=== PATIENT | male | born 1975 | race Caucasian/White ===

== ENCOUNTER 2016-09-10 08:00 | Emergency (ER) | payer BC ==
[2016-09-10 08:14] VITALS: BP 134/78
--- NOTE | 2016-09-10 08:26 | UC ---
Respiratory Complaint HPI - HPI Summary HPI Summary: HAS HAD SEVERAL DAYS OF ST AND HACKING COUGH. NO FEVER, EAR PAIN, N/V/D. DOES NOT HAVE TONSILS. - History of Current Complaint Chief Complaint: UCRespiratory Stated Complaint: COUGH SORE THROAT Time Seen by Provider: 09/10/16 08:16 Hx Obtained From: Patient Onset/Duration: Gradual Onset, Lasting Days, Still Present Timing: Constant Severity Initially: Moderate Severity Currently: Moderate Pain Intensity: 3 Pain Scale Used: 0-10 Numeric Character: Cough: Nonproductive Aggravating Factors: Nothing Alleviating Factors: Nothing Associated Signs And Symptoms: Positive: Hoarseness. Negative: Dyspnea, Fever, Chills, Pleuritic Chest Pain, Wheezing, Hemoptysis, Dizziness, Calf Pain, Calf Swelling, Edema, URI, Nasal Congestion, Sinus Discomfort - Allergies/Home Medications Allergies/Adverse Reactions: Allergies Allergy/AdvReac Type Severity Reaction Status Date / Time No Known Allergies Allergy Verified 09/10/16 08:14 PMH/Surg Hx/FS Hx/Imm Hx Respiratory History Of: Reports: Asthma - Surgical History Surgical History: Yes Surgery Procedure, Year, and Place: allografts of right and left biceps. tonsillectomy. tendon repair left index finger - Family History Known Family History: Positive: Hypertension - Social History Alcohol Use: Rare Substance Use Type: None Smoking Status (MU): Never Smoked Tobacco Review of Systems Constitutional: Negative ENT: Sore Throat Respiratory: Cough Cardiovascular: Negative Gastrointestinal: Negative All Other Systems Reviewed And Are Negative: Yes Physical Exam Triage Information Reviewed: Yes Appearance: Well-Appearing, No Pain Distress, Well-Nourished Vital Signs: Initial Vital Signs Temp 98.8 F 09/10/16 08:11 Pulse 86 09/10/16 08:11 Resp 20 09/10/16 08:11 BP 134/78 09/10/16 08:11 Pulse Ox 94 09/10/16 08:11 Vital Signs Reviewed: Yes Eyes: Positive: Conjunctiva Clear ENT: Positive: Hearing grossly normal, Pharyngeal erythema, TMs normal, Other: - MUCOUS AND SOME WHITE EXUDATE IN OP Neck: Positive: Supple, No Lymphadenopathy Respiratory Exam: Normal Cardiovascular Exam: Normal Abdomen Description: Positive: Soft Musculoskeletal: Positive: No Edema Neurological: Positive: Alert Psychological: Positive: Age Appropriate Behavior Skin: Negative: rashes UC Diagnostic Evaluation - Laboratory O2 Sat by Pulse Oximetry: 94 Respiratory Course/Dx - Differential Dx/Diagnosis Provider Diagnoses: ACUTE PHARYNGITIS Discharge - Discharge Plan Condition: Stable Disposition: HOME Prescriptions: Azithromycin [Azithromycin 500 MG TAB] 500 mg PO DAILY #5 tab Patient Education Materials: Pharyngitis (ED) Forms: *Work Release Referrals: Tai Torrez, AUTOMOTIVE POWER ELECTRONICS ENGINEER [Primary Care Provider] - If Needed
== END 2016-09-10 08:48 | disposition home or self-care (01) ==
LOC: UCEAST 08:00
DX: J02.9 Acute pharyngitis, unspecified (principal)
CPT/HCPCS: 99212; G0463

== ENCOUNTER 2018-10-14 09:04 | Day surgery (SDC) | payer OTHER ==
[~2018-10-14 09:04] MED LIST: Buffered Lidocaine 1% SYRIN* 1 ML/SYRINGE INTRADERM ONE; Lactated Ringers 1000 ML Bag* 1,000 ML IV SCH; Lidocaine 2% PF * 5 ML VIAL ONE; Midazolam* 1 MG/ML 2 ML VIAL (2 MG) ONE; Propofol* 10 MG/ML 20 ML BTL ONE; Rocuronium* 10 MG/ML VIAL ONE; fentaNYL* 50 MCG/ML 2 ML VIAL (100 MCG VIAL) ONE
[2018-10-14] MEDS ORDERED: ceFAZolin 2 GM PREMIX in ORs 2 GM/50 ML BAG IVPB ONE (09:20)
[2018-10-14] MEDS ORDERED: Dexamethasone IV* 4 MG/ML 1 ML (4 MG) ONE ×2 (11:16→13:22)
[2018-10-14] MEDS ORDERED: ROPIVACAINE 5 MG/ML 30 ML BTL (0.5%) ONE (11:17)
[2018-10-14] MEDS ORDERED: EPINEPHRINE 1 MG/ML 1 ML VIAL ONE (12:08)
[2018-10-14] MEDS ORDERED: ceFAZolin 1 GM VIAL(*) ONE (12:43)
[2018-10-14] MEDS ORDERED: Acetaminophen TAB* 325 MG PO PRN (12:47)
[2018-10-14] MEDS ORDERED: DiMENhydriNATE IV* 50 MG/ML VIAL IV PUSH PRN (12:47)
[2018-10-14] MEDS ORDERED: Naloxone* 0.4 MG/ML 1 ML VIAL IV PRN (12:47)
[2018-10-14] MEDS ORDERED: oxyCODONE TAB* 5 MG TAB PO PRN (12:47)
[2018-10-14] MEDS ORDERED: Ketorolac INJ* 30 MG/ML 1 ML VIAL ONE (13:22)
[2018-10-14] MEDS ORDERED: Ondansetron INJ* 2 MG/ML VIAL ONE (13:22)
[2018-10-14] MEDS ORDERED: Metoclopramide IV* 5 MG/ML 2 ML VIAL ONE (13:22)
[2018-10-14] MEDS ORDERED: Glycopyrrolate IV* 0.2 MG/ML 1 ML VIAL ONE (13:27)
[2018-10-14] MEDS ORDERED: Neostigmine Methylsulfate* 1 MG/ML 10 ML VIAL (1 mg/ml) ONE (13:27)
[2018-10-14] MEDS: HYDROmorphone INJ1* 1 MG/ML SYRINGE IV PRN ×2 (14:04→14:34)
[2018-10-14] MEDS ORDERED: oxyCODONE TAB* 5 MG TAB ONE (14:20)
[2018-10-14] MEDS ORDERED: HYDROmorphone INJ1* 1 MG/ML SYRINGE ONE (14:21)
[2018-10-14] MEDS ORDERED: Acetaminophen TAB* 325 MG ONE (14:21)
[2018-10-14 14:37] VITALS: BP 126/72
--- NOTE | 2018-10-15 16:42 | OP ---
DATE OF OPERATION: 10/14/18 - [facility] DATE OF : 75 SURGEON: Dr. Escobar Lopez. COLLAR STARCHER: JOSEPHINE Fuller. A physician guest services assistant was required for the length of the procedure for help with positioning, retraction, closure, and instrumentation. ANESTHESIOLOGIST: Dr. Milvia Monsalve. ANESTHESIA: General anesthesia, regional interscalene block anesthesia. PRE-OP DIAGNOSES: 1. Right shoulder acromioclavicular joint osteoarthritis. 2. Right shoulder subacromial impingement and bursitis. 3. Right shoulder rotator cuff tendinitis, possible partial-thickness tear, supraspinatus. 4. Possible right shoulder proximal biceps tendinitis. POST-OP DIAGNOSES: 1. Right shoulder acromioclavicular joint osteoarthritis. 2. Right shoulder subacromial impingement and bursitis. 3. Right shoulder rotator cuff tendinitis. 4. Right shoulder superior labrum tear. OPERATIVE PROCEDURES: 1. Right shoulder arthroscopic distal clavicle resection. 2. Right shoulder arthroscopic subacromial decompression. 3. Right shoulder arthroscopic debridement including release of biceps tendon and debridement of superior labrum. ANTIBIOTICS: Ancef 3 g IV. IV FLUIDS: See anesthesia note. SKIN TO SKIN TIME: 37 minutes. ARTHROSCOPIC FLUID UTILIZED: Unknown. SPECIMEN: None. IMPLANTS: None. COMPLICATIONS: None. ESTIMATED BLOOD LOSS: Minimal. 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 He responded insufficiently to nonoperative management and opted for surgery. Discussed risks and potential complications. DESCRIPTION OF PROCEDURE: In preoperative holding, the patient signed a written consent. Operative extremity was marked in preoperative holding. Patient underwent a regional interscalene nerve block by Dr. Monsalve. Patient was taken back to the operating room and placed supine on the operating room table. Sedated and intubated. Lateral decubitus position. Bone bag insufflated, hardened. Axillary roll, bony prominences padded, longitudinal traction with 15 pounds in the appropriate amount of forward flexion and abduction. Prepped and draped. Surgical time-out performed. Normal saline 30 cc injected into joint per posterior, glenohumeral. Established posterior glenohumeral joint portal using standard technique. Diagnostic arthroscopy commenced. No rotator cuff damage to the undersurface whatsoever on tendons. No articular cartilage injury. No clear biceps tendon injury, although the superior labrum was concerning for a tear. There was a Vining complex anteriorly, normal anatomic variant. Established anterior glenohumeral joint portal under direct visualization. Introduced arthroscopic shaver. Debrided some rotator interval synovitis. Evaluated biceps tendon, looked fine. Evaluated undersurface of the superior labrum and there appeared to be a tear, unstable. Cut the biceps tendon long head near its origin. Removed the instruments and transferred them to the subacromial space. Established lateral and then posterolateral subacromial portals under direct visualization. Debrided subacromial bursitis with an arthroscopic shaver. No rotator cuff injury noted by palpation and visually. Debrided the undersurface of the anterior acromion with an arthroscopic ulysses. We then moved to the distal clavicle and debrided 8 mm of distal end of the clavicle at least, with the arthroscopic ulysses. Made sure that the AC joint was nicely opened up. Removed instruments and fluids from the subacromial space. Closed skin incisions with [id number] in 12 stitches using nylon 3-0 suture. Xeroform , 4x4's, ABDs, foam tape. A sling without abduction pillow placed. Patient was awakened, extubated, and transferred to the PACU. DISPOSITION: Wound care instructions. Follow up in 10 to 14 days postoperatively. Patient was given Percocet as needed for pain control and aspirin for 2 weeks for DVT prophylaxis. Patient can start physical therapy immediately and can start weaning out of sling immediately. [id number]/[facility] #: [id number] CLAUDE
== END 2018-10-14 17:05 | disposition home or self-care (01) ==
LOC: OR 09:04
PROVIDERS: ATTEND Orthopaedic Surgery
DX: M75.51 Bursitis of right shoulder (principal); M19.011 Primary osteoarthritis, right shoulder; M75.41 Impingement syndrome of right shoulder; M24.111 Other articular cartilage disorders, right shoulder; G89.18 Other acute postprocedural pain; G47.33 Obstructive sleep apnea (adult) (pediatric); K21.9 Gastro-esophageal reflux disease without esophagitis
CPT/HCPCS: A9270-GY; J0690; J1100; J1170; J1885; J2250; J2405; J2704; J2710; J2765; J2795; J3010

== ENCOUNTER 2019-03-12 10:16 | Emergency (ER) | payer BC, OTHER ==
[2019-03-12 10:48] VITALS: BP 113/62
--- NOTE | 2019-03-12 12:24 | UC ---
Skin Complaint HPI - HPI Summary HPI Summary: 43 yo male with right lower leg redness and swelling noted today hx of cellulitis no f/c no n/v no inguinal pain - History of Current Complaint Chief Complaint: UCSkin Time Seen by Provider: 03/12/19 12:09 Stated Complaint: LEG PAIN, AND SWELLING Hx Obtained From: Patient Onset/Duration: Gradual Onset Timing: Constant Onset Severity: Mild Current Severity: Mild Pain Intensity: 4 Pain Scale Used: 0-10 Numeric Location: Diffuse Aggravating Factor(s): Nothing Alleviating Factor(s): Nothing Associated Signs & Symptoms: Positive: Negative - Allergy/Home Medications Allergies/Adverse Reactions: Allergies Allergy/AdvReac Type Severity Reaction Status Date / Time No Known Allergies Allergy Verified 03/12/19 10:48 PMH/Surg Hx/FS Hx/Imm Hx Previously Healthy: Yes - Surgical History Surgical History: Yes Surgery Procedure, Year, and Place: allografts of right and left biceps 2006 [facility]. tonsillectomy as a child. tendon repair left index finger 1998 [facility] [place]. right shoulder repair - Family History Known Family History: Positive: Hypertension - Social History Alcohol Use: Weekly Alcohol Amount: 1-2 week Substance Use Type: None Smoking Status (MU): Never Smoked Tobacco Have You Smoked in the Last Year: No Review of Systems All Other Systems Reviewed And Are Negative: Yes Constitutional: Positive: Negative Skin: Positive: Negative Eyes: Positive: Negative ENT: Positive: Negative Respiratory: Positive: Negative Cardiovascular: Positive: Negative Gastrointestinal: Positive: Negative Genitourinary: Positive: Negative Motor: Positive: Negative Neurovascular: Positive: Negative Musculoskeletal: Positive: Edema - mild RLE Neurological: Positive: Negative Psychological: Positive: Negative Physical Exam Triage Information Reviewed: Yes Appearance: Well-Appearing, No Pain Distress, Well-Nourished Vital Signs: Initial Vital Signs Temp 98.7 F 03/12/19 10:42 Pulse 76 03/12/19 10:42 Resp 18 03/12/19 10:42 BP 113/62 03/12/19 10:42 Pulse Ox 94 03/12/19 10:42 Vital Signs Reviewed: Yes ENT: Positive: Hearing grossly normal. Negative: Nasal congestion, Nasal drainage, Trismus, Muffled voice Dental Exam: Normal Neck: Positive: Supple, Nontender, No Lymphadenopathy Respiratory: Positive: Lungs clear, Normal breath sounds, No respiratory distress, No accessory muscle use Cardiovascular: Positive: RRR, No Murmur Neurological: Positive: Alert Psychological Exam: Normal Skin Exam: Normal Images Feet (Multiple View): 1 - skin macerated btw toes 2 - mild swelling and erythema Course/Dx - Diagnoses Provider Diagnosis: Cellulitis of right lower extremity, Tinea pedis Discharge - Sign-Out/Discharge Documenting (check all that apply): Patient Departure All imaging exams completed and their final reports reviewed: No Studies - Discharge Plan Condition: Stable Disposition: HOME Prescriptions: Cephalexin CAP* [Keflex CAP*] 500 mg PO QID #28 cap Patient Education Materials: Athlete's Foot (ED), Cellulitis (ED) Referrals: Tai Torrez, SCIENCE TECHNICIANS [Primary Care Provider] - 4 Days (if not better) Additional Instructions: twice daily epsom salt soaks of both feet gently dry apply lotrimen (OTC) between your toes try this for 2-3 weeks - Billing Disposition and Condition Condition: STABLE Disposition: Home
== END 2019-03-12 12:30 | disposition home or self-care (01) ==
LOC: UCEAST 10:16
DX: L03.115 Cellulitis of right lower limb (principal); B35.3 Tinea pedis
CPT/HCPCS: 99212; G0463

== ENCOUNTER 2019-03-15 08:29 | Emergency (ER) | payer BC ==
[2019-03-15 08:42] VITALS: BP 106/53
[2019-03-15] MEDS ORDERED: methylPREDNISolone 125 MG* 2 ML VIAL IV ONE ×2 (08:56)
[2019-03-15] MEDS ORDERED: Famotidine IV* 10 MG/ML 2 ML (20 mg) IV SLOW PU ONE (08:57)
[2019-03-15] MEDS ORDERED: EPINEPHRINE 1 MG/ML 1 ML VIAL IM ONE (08:59)
[2019-03-15] MEDS ORDERED: NS 0.9% 1000 ML** 1,000 ML IV SCH (09:00)
[2019-03-15] MEDS ORDERED: diPHENhydraMINE IV* 50 MG/ML 1 ml VIAL (BENADRYL) IV ONE (09:04)
--- NOTE | 2019-03-15 09:07 | UC ---
Allergic Reaction HPI - HPI Summary HPI Summary: patient is a 43-year-old male who presents to the urgent care with chief complaint of having a rash in the upper extremities, lower extremities, abdomen , back, face. He also reports that he is feeling that his throat is closing and also he has a swelling of the lower lip. There is no tongue swelling. he reports that he started taking 3 days ago Keflex for right lower extremity cellulitis. He has no other complaints. He denies any shortness of breath, chest pain or palpitations. - History of Current Complaint Chief Complaint: UCRash Stated Complaint: RASH Time Seen by Provider: 03/15/19 08:43 Hx Obtained From: Patient Onset/Duration: Gradual Onset Severity Initially: Mild Severity Currently: Moderate Pain Intensity: 0 - Allergies/Home Medications Allergies/Adverse Reactions: Allergies Allergy/AdvReac Type Severity Reaction Status Date / Time cephalexin [From Keflex] Allergy Rash And Verified 03/15/19 10:09 Itching Home Medications: Home Medications diphenhydrAMINE HCl [Benadryl Allergy 25 MG CAP] 50 mg PO DAILY PRN 03/15/19 [ History Confirmed 03/15/19] PMH/Surg Hx/FS Hx/Imm Hx Previously Healthy: Yes Endocrine History: Other - obesity - Surgical History Surgical History: Yes Surgery Procedure, Year, and Place: allografts of right and left biceps 2006 [facility]. tonsillectomy as a child. tendon repair left index finger 1998 [facility] [place]. right shoulder repair - Family History Known Family History: Positive: Hypertension - Social History Alcohol Use: Occasionally Alcohol Amount: 1-2 week Substance Use Type: None Smoking Status (MU): Never Smoked Tobacco Have You Smoked in the Last Year: No Review of Systems All Other Systems Reviewed And Are Negative: Yes Constitutional: Positive: Negative Skin: Positive: Rash, Other - facial welling, lower lip swelling, throat swelling Eyes: Positive: Negative ENT: Positive: Negative Respiratory: Positive: Negative Cardiovascular: Positive: Negative Gastrointestinal: Positive: Negative Genitourinary: Positive: Negative Motor: Positive: Negative Neurovascular: Positive: Negative Musculoskeletal: Positive: Negative Neurological: Positive: Negative Psychological: Positive: Negative Is Patient Immunocompromised?: No Physical Exam - Summary Physical Exam Summary: VITAL SIGNS: Reviewed. GENERAL: Patient is an obese maleas needed. 5 who is lying comfortable in the stretcher. Patient is not in any acute respiratory distress. HEAD AND FACE: No signs of trauma. No ecchymosis, hematomas or skull depressions. No sinus tenderness. EYES: PERRLA, EOMI x 2, No injected conjunctiva, no nystagmus. EARS: Hearing grossly intact. Ear canals and tympanic membranes are within normal limits. MOUTH: Oropharynx within normal limits. Lowe rlip swelling, right posterior soft palate swelling. NECK: Supple, trachea is midline, no adenopathy, no JVD, no carotid bruit, no c- spine tenderness, neck with full ROM. CHEST: Symmetric, no tenderness at palpation LUNGS: Clear to auscultation bilaterally. No wheezing or crackles. CVS: Regular rate and rhythm, S1 and S2 present, no murmurs or gallops appreciated. ABDOMEN: Soft, non-tender. No signs of distention. No rebound no guarding, and no masses palpated. Bowel sounds are normal. EXTREMITIES: FROM in all major joints, no edema, no cyanosis or clubbing. NEURO: Alert and oriented x 3. No acute neurological deficits. Speech is normal and follows commands. SKIN: Dry and warm, diffuse erythematous swelling in upper, lower extremities, chest and back. and face. Triage Information Reviewed: Yes Appearance: Pain Distress, Obese Vital Signs: Initial Vital Signs Temp 98.6 F 03/15/19 08:33 Pulse 68 03/15/19 08:33 Resp 18 03/15/19 08:33 BP 106/53 03/15/19 08:33 Pulse Ox 94 03/15/19 08:33 Vital Signs Reviewed: Yes Allergic Reaction Course/Dx - Course Course Of Treatment: since the patient is having this allergic reaction with feeling that his throat is closing his patient and the right side of the neck, lip swelling I gave the patient Benadryl, Pepcid, Solu-Medrol, and epinephrine. Patient also was given IV fluids. The patient will be transferred to the ED via ambulance. I discussed case with Ary BURTON in the ED and she is aware the patient going to the emergency department. At this point the patient is hemodynamically stable alert and oriented 3. - Differential Dx/Diagnosis Provider Diagnosis: Allergic reaction Discharge - Sign-Out/Discharge Documenting (check all that apply): Patient Departure All imaging exams completed and their final reports reviewed: No Studies - Discharge Plan Condition: Guarded Disposition: TRANS HIGHER L OF CARE FAC Patient Education Materials: General Allergic Reaction (ED) Referrals: Tai Torrez CHIEF EXECUTIVE OFFICER [Primary Care Provider] - Additional Instructions: Patient will transferred to the emergency department for further workup and management - Billing Disposition and Condition Condition: GUARDED Disposition: Trans Higher Lvl of Care Fac
== END 2019-03-15 09:20 | disposition short-term general hospital (02) ==
LOC: UCEAST 08:29
DX: L27.1 Localized skin eruption due to drugs and medicaments taken internally (principal); R09.89 Other specified symptoms and signs involving the circulatory and respiratory systems; R22.0 Localized swelling, mass and lump, head; T36.1X5A Adverse effect of cephalosporins and other beta-lactam antibiotics, initial encounter; Y92.9 Unspecified place or not applicable
CPT/HCPCS: 96360; 96372; 96374; 96376; 99203; G0463; J1200; J2930

== ENCOUNTER 2019-03-15 09:45 | Observation (INO) | payer BC ==
[2019-03-15] MEDS ORDERED: diPHENhydraMINE IV* 50 MG/ML 1 ml VIAL (BENADRYL) IV ONE ×2 (10:09→12:28)
--- NOTE | 2019-03-15 10:10 | ED ---
Allergic Reaction/Systemic - HPI Summary HPI Summary: Patient is a 43 y/o M presenting to ED via EMS from [facility] for concerns of allergic reaction. Patient reports throat swelling onset earlier this morning, , at around 0430. Patient additionally notes rash at upper extremities, abdomen, forehead, back of neck. Patient had been placed on Keflex for right leg cellulitis three days ago, which he has been taking four times a day. At , patient was given Benadryl, Epinephrine, Pepcid, and Solu-Medrol. In the room , he notes some decreased pruritus. Patient reports some sore throat at present and does not report any throat swelling at this time. He additionally reports that there is a lump at the right side of his neck. He denies any respiratory Sx. Patient denies Hx of allergic reactions. PMHx of asthma, GERD, sleep apnea, arthritis, bursitis. Pt does not report any fever, chills, erythema of eyes, CP , SOB, cough, abdominal pain, N/V, dysuria, hematuria, myalgia, or dizziness. On triage, pain is rated 0/10. Nothing is noted to aggravate/alleviate Sx. Home medications and allergies are reviewed. - History of Current Complaint Chief Complaint: EDAllergicReaction Time Seen by Provider: 03/15/19 09:49 Hx Obtained From: Patient Onset/Duration: Started hours ago - throat swelling onset 0430 today, 03/15/19, Still Present - sore throat, Resolved - he reports no more throat swelling Timing: Lasting Hours - throat swelling onset 0430 today, 03/15/19 Severity Currently: None Pain Intensity: 0 Pain Scale Used: 0-10 Numeric Location: Diffuse - right arm, abdomen, forehead, back of neck Character: Swelling - throat, Pruritus Aggravating Factor(s): Other - possibly Keflex Alleviating Factor(s): Antihistamines, Epinephrine Associated Signs And Symptoms: Positive: Rash, Throat Tightening - reports no more throat swelling, just endorses sore throat, Other: - lump right side of neck - Allergies/Home Medications Allergies/Adverse Reactions: Allergies Allergy/AdvReac Type Severity Reaction Status Date / Time cephalexin [From Keflex] Allergy Rash And Verified 03/15/19 10:09 Itching PMH/Surg Hx/FS Hx/Imm Hx Endocrine/Hematology History: Denies: Hx Bone Marrow Disease, Hx Diabetes, Hx Sickle Cell Disease, Hx Anemia Cardiovascular History: Denies: Hx Hypertension, Hx Pacemaker/ICD Respiratory History: Reports: Hx Asthma - as a child, Hx Sleep Apnea GI History: Reports: Hx Gastroesophageal Reflux Disease - MEDS PRN History: Denies: Hx Renal Disease Musculoskeletal History: Reports: Hx Arthritis - OSTEO, Hx Bursitis - RIGHT SHOULDER, Other Musculoskeletal History - WEAKNESS IN RIGHT SHOULDER DUE TO INJURY- 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 tonsillectomy as a child. tendon repair left index finger 1998 [facility]. right shoulder repair Hx Anesthesia Reactions: No - Immunization History Date of Tetanus Vaccine: unsure Infectious Disease History: No Infectious Disease History: Denies: History Other Infectious Disease, Traveled Outside the in Last 30 Days - Family History Known Family History: Positive: Hypertension - Social History Alcohol Use: Occasionally Alcohol Amount: 1-2 week Substance Use Type: Reports: None Smoking Status (MU): Never Smoked Tobacco Have You Smoked in the Last Year: No Review of Systems Negative: Fever, Chills Negative: Erythema Positive: Sore Throat Negative: Chest Pain Negative: Shortness Of Breath, Cough Negative: Abdominal Pain, Vomiting, Nausea Negative: dysuria, hematuria Positive: Edema - throat swelling earlier today, does not report at present. Negative: Myalgia Skin: Other - positive - pruritus, lump at right side of neck Positive: Rash Neurological: Other - negative - dizziness All Other Systems Reviewed And Are Negative: Yes Physical Exam - Summary Physical Exam Summary: Constitutional: Well-developed, Well-nourished, Alert. (-) Distressed Skin: Warm, Dry; faint, fine maculopapular rash on BUE, worse on right, no discrete hives, no stridor, no angioedema. HENT: Normocephalic; Atraumatic Eyes: Conjunctiva normal Neck: Musculoskeletal ROM normal neck. (-) JVD, (-) Stridor, (-) Tracheal deviation Cardio: Rhythm regular, rate normal, Heart sounds normal; Intact distal pulses; The pedal pulses are 2+ and symmetric. Radial pulses are 2+ and symmetric. (-) Murmur Pulmonary/Chest wall: Effort normal. (-) Respiratory distress, (-) Wheezes, (-) Rales Abd: Soft, (-) tenderness, (-) Distension, (-) Guarding, (-) Rebound Musculoskeletal: (-) Edema Lymph: (-) Cervical adenopathy Neuro: Alert, Oriented x3 Psych: Mood and affect Normal Triage Information Reviewed: Yes Vital Signs On Initial Exam: Initial Vitals Temp Pulse Resp BP Pulse Ox 98.1 F 105 19 139/55 94 03/15/19 09:54 03/15/19 09:54 03/15/19 09:54 03/15/19 09:54 03/15/19 09:54 Vital Signs Reviewed: Yes Diagnostics - Vital Signs Vital Signs Temp Pulse Resp BP Pulse Ox 03/15/19 09:54 98.1 F 105 19 139/55 94 - Laboratory Result Diagrams: 03/15/19 12:40 Lab Statement: Any lab studies that have been ordered have been reviewed, and results considered in the medical decision making process. - EKG 1236 Cardiac Rate: NL - rate of 85 BPM EKG Rhythm: Sinus Rhythm Summary of EKG Findings: EKG showed sinus rhythm with rate of 85 BPM, no STEMI. Re-Evaluation - Re-Evaluation First Eval Re-Evaluation Time: 12:25 Change: Worse Comment: Patient now has hives on right arm that are worsening. He reports that he feels some swelling in his throat. Patient to be given additional Benadryl and epinephrine. Second Eval Re-Evaluation Time: 13:53 Change: Worse Comment: Patient states that he still feels tight in the throat, rash erupting at abdominal area. Patient is agreeable with admission. Allergic Reaction Course/Dx - Course Course Of Treatment: Patient is a 43 y/o M presenting to ED via EMS from [facility] for concerns of allergic reaction. Patient reports throat swelling onset earlier this morning, 03/15/19, at around 0430. Patient additionally notes rash at upper extremities, abdomen, forehead, back of neck. Patient had been placed on Keflex for right leg cellulitis three days ago, which he has been taking four times a day. At , patient was given Benadryl, Epinephrine, Pepcid, and Solu-Medrol. In the room, he notes some decreased pruritus. Patient denies throat swelling at this time but endorses some sore throat at present. He additionally reports that there is a lump at the right side of his neck. He denies any respiratory Sx. Patient denies Hx of allergic reactions. On physical exam, faint, fine maculopapular rash on BUE, worse on right, no discrete hives, no stridor, no angioedema. Patient was given Benadryl 25 mg IV. 1225 - Patient now has hives on right arm that are worsening. He reports that he feels some swelling in his throat. Patient to be given additional Benadryl and epinephrine. EKG showed sinus rhythm with rate of 85 BPM, no STEMI. 1353 - Patient states that he still feels tight in the throat, rash erupting at abdominal area. Patient is agreeable with admission. Patient's case was discussed with Dr. Quinones, Dr. Quinones to accept the patient. - Diagnoses Provider Diagnoses: Anaphylactic reaction - Provider Notifications Discussed Care Of Patient With: Denisse Quinones Time Discussed With Above Provider: 13:58 Instructed by Provider To: Other - Patient's case was discussed with Dr. Quinones , Dr. Quinones to accept the patient. - Critical Care Time Critical Care Time: 75-104 min - 75 minutes CCT Discharge - Sign-Out/Discharge Documenting (check all that apply): Patient Departure - admit Patient Received Moderate/Deep Sedation with Procedure: No - Discharge Plan Condition: Fair Disposition: ADMITTED TO [facility] Prescriptions: Clindamycin HCl 450 mg PO QID #42 capsule Referrals: Tai Torrez, DRAW OFF WORKER [Primary Care Provider] - - Attestation Statements Document Initiated by Scribe: Yes Documenting Scribe: TRACEY HONEYCUTT Provider For Whom Enriquetaibe is Documenting (Include Credential): MAGALY GARCIA MD Scribe Attestation: TRACEY Conrad, scribed for MAGALY GARCIA MD on 03/15/19 at 1403. Status of Scribe Document: Ready
[2019-03-15] MEDS ORDERED: EPINEPHRINE 1 MG/ML 1 ML VIAL IM ONE (12:28)
[2019-03-15 12:54] LABS: Hematocrit 43 % (42-52); Hemoglobin 14.4 g/dL (14.0-18.0); Mean Corpuscular HGB Conc 34 g/dL (31-36); Mean Corpuscular Hemoglobin 30 pg (27-31); Mean Corpuscular Volume 89 fL (80-94); Platelet Count 221 10^3/uL (150-450); Red Blood Count 4.81 10^6 /uL (4.18-5.48); Red Cell Distribution Width 14 % (10-15); White Blood Count 8.8 10^3/uL (3.5-10.8)
[2019-03-15 13:04] LABS: Albumin 4.5 g/dL (3.2-5.2); Albumin/Globulin Ratio 1.7 (1-3); BUN/Creatinine Ratio 13.4 (8-20); Calcium 9.1 mg/dL (8.6-10.3); EGFR African American 102.2 (>60); EGFR Non-African American 84.5 (>60); Globulin 2.7 g/dL (2-4); Potassium 4.1 mmol/L (3.5-5.0); Total Bilirubin 0.8 mg/dL (0.2-1.0); Total Protein 7.2 g/dL (6.4-8.9)
[2019-03-15] MEDS ORDERED: EPINEPHRINE 1 MG/ML 1 ML VIAL IM PRN (15:52)
[2019-03-15] MEDS: predniSONE TAB* 20 MG PO SCH (17:33)
[2019-03-15] MEDS: diPHENhydraMINE PO* 25 MG PO SCH ×2 (17:33→20:57)
--- NOTE | 2019-03-15 18:51 | HP ---
CC: Tai Torrez NP * HISTORY AND PHYSICAL: ADDENDUM: PRIMARY CARE PROVIDER: Tai Torrez NP The case reviewed and discussed with JOSEPHINE Fuller. HISTORY OF PRESENT ILLNESS: Mr. Moore is a 43-year-old male with a past medical history of morbid obesity, who initially presented to [facility] on 03/12/19. On that visit, he was diagnosed with lower extremity cellulitis and started on cephalexin. The patient developed a rash and also some neck tightness, then he went to [facility] where he was diagnosed with an allergic reaction. He received Benadryl, epinephrine, famotidine, Solu-Medrol, and he also described some lip swelling. He was sent to the emergency room where he received another round of epinephrine, H1 and H2 blockers with some improvement of his symptoms, but there was still some residual lip edema, so the hospitalist service was consulted so the patient could be admitted for further observation. The case was reviewed and discussed with JOSEPHINE Fuller and I am in agreement with the current management. [id number]/CPS #: [id number] MTDTabitha
--- NOTE | 2019-03-15 19:16 | HP ---
ATTENDING ADDENDUM NOW INCLUDED ON THIS REPORT CC: Tai Torrez NP * HISTORY AND PHYSICAL: DATE OF ADMISSION: 03/15/19 PRIMARY CARE PROVIDER: Tai Torrez NP. ATTENDING PHYSICIAN: Dr. Delores Marquez * (dictated by JOSEPHINE Lyons ). CHIEF COMPLAINT: 1. Rash. 2. Lip, throat swelling. HISTORY OF PRESENT ILLNESS: Mr. Moore is a 43-year-old male with a past medical history of asthma, GERD, obstructive sleep apnea, who presented to the ER today with complaints of throat swelling and rash. He states that the rash appeared on the right arm at approximately the same time as a right lower extremity cellulitis. He states that he went to [facility], was diagnosed with cellulitis of the right lower extremity and was started on Keflex. He started taking Keflex on Friday x1 dose and continued taking it q.i.d. for the next 2 days. His last dose was Friday around 6 a.m. He notes that the rash on the right arm started to spread to the abdomen, the posterior neck, and his hairline. He notes that the rash was itchy. This morning, he awoke around 4:30 a.m. and noted throat swelling and difficulty with breathing. He went to [facility], where he was given 50 of Benadryl, 125 of Solu-Medrol, 25 of famotidine, and 0.3 of epinephrine as well as normal saline bolus around approximately 9 a.m. He was then sent to the ER, where he was further evaluated. He received Benadryl 25 in the ER. Hours later, the swelling on the right side of his neck recurred, which prompted administration of 50 of IV Benadryl and another 0.3 IM epinephrine. His symptoms again improved. The patient notes that he does have itching associated with his rash; he feels that this has improved slightly with medication. He denies difficulty swallowing, but notes that it feels "tight to swallow." He has perioral edema, lip swelling, and perioral numbness. He denies shortness of breath or difficulty breathing. He denies chest pain or pain in the extremities. He has no new soaps or laundry detergents. The only new medication is the Keflex, which he started on Friday. 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 While in the emergency department, the patient received Benadryl 75, epi 0.3. He also had an EKG, which revealed normal sinus rhythm, no ST changes and rate 85. Hospitalist team was asked to evaluate the patient for admission. PAST MEDICAL HISTORY: 1. Asthma. 2. Obstructive sleep apnea. 3. Osteoarthritis. 4. GERD. 5. Right shoulder bursitis. PAST SURGICAL HISTORY: Allograft, right and left biceps; tonsillectomy; left second digit tendon repair; right shoulder. HOME MEDICATIONS: None. DRUG ALLERGIES: CEPHALEXIN, anaphylaxis. FAMILY HISTORY: Paternal grandfather - [place]. Maternal grandfather - lymph node, stomach cancer. Breast cancer in multiple family members on the mother's side. Father has hypertension. Family history negative for CVA, diabetes mellitus. SOCIAL HISTORY: The patient denies current and former tobacco use, although he admits to second-hand smoke growing up as a child. He drinks 1 to 2 alcoholic drinks per week. 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 In the event that he is unable to make his own medical decisions, he has appointed his Carli Moore to be his surrogate decision maker. REVIEW OF SYSTEMS: A 10-point review of systems was performed and all the pertinent positives and negatives are in the HPI. All other systems are negative. PHYSICAL EXAMINATION GENERAL: Mr. Moore is a well-developed, well-nourished obese 43-year-old male, who is sitting up in bed. He appears to be in no acute distress. He is not struggling to breathe. No respiratory distress. VITAL SIGNS: Temperature 98.1 temporal, heart rate 109, respiratory rate 25, oxygen saturation 93% on room air, blood pressure 124/58. HEENT: PERRL. EOMI. Nonicteric sclerae. Hearing is grossly intact. Oral mucous membranes are moist. There are no lesions. The pharynx is clear. There is slight swelling of the lips. There is no periorbital edema. NECK: Full range of motion. Trachea midline. There is no lymphadenopathy. There is right-sided tenderness to palpation. There is no noticeable or palpable edema or swelling about the neck. RESPIRATORY: Symmetrical chest expansion with no use of accessory muscles. Lungs are clear to auscultation bilaterally without rhonchi, wheezes, or rales. CARDIOVASCULAR: Tachycardic rate, regular rhythm. S1, S2 present without murmurs, rubs, clicks, gallops. There is no JVD. ABDOMEN: Bowel sounds noted in all quadrants. The abdomen is soft. There is no tenderness to palpation. EXTREMITIES: Skin is warm and smooth bilaterally without clubbing, cyanosis, or edema. Radial and pedal pulses are palpable and equal bilaterally. SKIN: There is a small patch of mild erythema on the anterior distal lower extremity, which is slightly tender to palpation. The patient has a large rash on the right posterior forearm. The rash is a patch of grouped, raised, erythematous macules. The patient has one patch on the anterior abdomen; there are none on the back. There are small patches around the hairline; there is also one on the right shoulder. NEUROLOGIC: The patient is awake. He is alert and oriented x3. He is able to move all of his extremities. Cranial nerves are grossly intact. DIAGNOSTIC STUDIES/LAB DATA: EKG: Normal sinus rhythm without ST changes, rate is 85. Laboratory Data: WBC 8.8, RBC 4.81, HGB 14.4, HCT 43, platelets 221. CMP within normal limits except for glucose 139. ASSESSMENT AND PLAN: Mr. Moore is a 43-year-old male with a past medical history of asthma, gastroesophageal reflux disease, arthritis who presented to the ER today with complaints of throat swelling and rash and was found to have anaphylaxis with angioedema. The patient will be admitted observation for: 1. Anaphylaxis with angioedema. The patient was treated with Benadryl, famotidine, Solu-Medrol, and epinephrine as well as normal saline bolus. Due to right neck swelling hours after epi administration, the patient received another dose of epinephrine. The patient will be continued on Benadryl at 25 mg q.4 hours, famotidine 20 mg b.i.d. He will be given oral prednisone 60 mg daily, p.r.n. epinephrine has been ordered with instructions to call provider for need for administration. The patient is tolerating oral intake, so he will not be placed on IV fluids at this time. We will continue to monitor blood pressure for need for administration of IV fluids. The patient will likely need to be sent home with EpiPen as it is unknown what has caused this reaction. There is concern that it may have been Keflex, although his rash was present prior to starting this medication. 2. Cellulitis. The patient was diagnosed with cellulitis and has received approximately 3 days of treatment with Keflex. Treatment with Keflex will be discontinued due to possible allergic reaction. He will receive doxycycline instead and continue treatment for cellulitis. 3. Asthma. The patient denies home medications. P.r.n. rescue inhaler has been ordered. 4. Gastroesophageal reflux disease. The patient denies use of home medications for gastroesophageal reflux disease. He is continued on famotidine for treatment of his allergic reaction. 5. FEN: The patient will be placed on heart healthy, no caffeine diet. IV fluids to be considered at a later date if hypotension occurs. 6. DVT prophylaxis. According to the DVT risk assessment, the patient scores 2 and at moderate risk for the development of DVT. He will be placed on sequential compression devices. 7. Code status: Full code. TIME SPENT: Approximately 60 minutes was spent on this admission, greater than half of that time was spent with the patient, obtaining history, performing physical and reviewing the plan of care. The case has been reviewed with my attending, Dr. Marquez, who is in agreement with the plan of care. JOSEPHINE LYONS ADDENDUM: PRIMARY CARE PROVIDER: Tai Torrez NP The case reviewed and discussed with JOSEPHINE Fuller. HISTORY OF PRESENT ILLNESS: Mr. Moore is a 43-year-old male with a past medical history of morbid obesity, who initially presented to [facility] on 03/12/19. On that visit, he was diagnosed with lower extremity cellulitis and started on cephalexin. The patient developed a rash and also some neck tightness, then he went to [facility] where he was diagnosed with an allergic reaction. He received Benadryl, epinephrine, famotidine, Solu-Medrol, and he also described some lip swelling. He was sent to the emergency room where he received another round of epinephrine, H1 and H2 blockers with some improvement of his symptoms, but there was still some residual lip edema, so the hospitalist service was consulted so the patient could be admitted for further observation. The case was reviewed and discussed with JOSEPHINE Fuller and I am in agreement with the current management. DELORES Marquez MD [id number]/CPS #: [id number]/CPS #: [id number] CLAUDE
[2019-03-15] MEDS: DOXYcycline CAP(*) 100 MG PO SCH (20:57)
[2019-03-15] MEDS: Famotidine TAB* 20 MG PO SCH (20:59)
[2019-03-15] MEDS ORDERED: DOXYcycline CAP(*) 100 MG PO SCH (21:00)
[2019-03-16] MEDS: diPHENhydraMINE PO* 25 MG PO SCH ×3 (02:17→08:56)
[2019-03-16 06:48] LABS: ABS Monocytes 0.7 10^3/ul (0-0.8); ABS Neutrophils 13.6 10^3/ul (1.5-7.7); Hematocrit 44 % (42-52); Hemoglobin 15.1 g/dL (14.0-18.0); Lymphocyte % 6.6 %; Mean Corpuscular HGB Conc 34 g/dL (31-36); Mean Corpuscular Hemoglobin 30 pg (27-31); Mean Corpuscular Volume 88 fL (80-94); Mean Platelet Volume 7.8 fL (7.4-10.4); Platelet Count 259 10^3/uL (150-450); Red Cell Distribution Width 13 % (10-15); White Blood Count 15.4 10^3/uL (3.5-10.8)
[2019-03-16] MEDS: predniSONE TAB* 20 MG PO SCH (08:57)
[2019-03-16] MEDS: DOXYcycline CAP(*) 100 MG PO SCH (08:57)
[2019-03-16] MEDS: Famotidine TAB* 20 MG PO SCH (08:57)
[2019-03-16 09:01] VITALS: BP 115/58
--- NOTE | 2019-03-16 20:19 | DS ---
CC: Tai Torrez NP * DISCHARGE SUMMARY: DATE OF ADMISSION: 03/15/19 DATE OF DISCHARGE: 03/16/19 PRIMARY CARE PROVIDER: Tai Torrez NP. ATTENDING PHYSICIAN: Dr. Denisse Navarro * (dictated by Anushka Deutsch NP). PRIMARY DIAGNOSES: 1. Anaphylaxis with angioedema. 2. Right lower extremity cellulitis. SECONDARY DIAGNOSES: 1. Asthma. 2. Gastroesophageal reflux disease. STUDIES WHILE IN THE HOSPITAL: EKG on 03/15/19 shows normal sinus rhythm with a rate of 85, QTc 447. No ischemic changes. HISTORY OF PRESENT ILLNESS AND HOSPITAL COURSE: Mr. Moore is a 43-year-old male with past medical history of asthma, obstructive sleep apnea, and GERD, who presented to the emergency room on 03/15/19 with complaints of rash and facial swelling. Please see the history and physical by JOSEPHINE Fuller for complete summary of the events leading up to this hospitalization. In short , the patient recently developed a rash on his right arm as well as erythema to his right lower extremity. He was seen at [facility] where he was diagnosed with cellulitis and started on Keflex. He took the Keflex for 2 days and subsequently noticed the rash on his arm spreading across his torso and scalp. He awoke on 03/15/19 in the morning and noted some difficulty breathing. He went to [facility] and was given Benadryl, Solu-Medrol, famotidine, and epi and then was sent to the emergency room here at [facility]. In the emergency room, he was noted to be tachycardic, though vitals were otherwise stable, labs were stable. He received additional Benadryl and epi. His symptoms seemed to improve and was discharged by the emergency room physician when the swelling on his right face and neck recurred, at which point , he was given another dose of epinephrine and IV. He was admitted by the hospitalist service. The patient was continued on Benadryl and famotidine. He was started on prednisone. Regarding his cellulitis, he was changed to doxycycline. The cause of the anaphylaxis was not entirely clear. The patient did have a rash prior to taking Keflex, though this rash may have represented something like poison mindy and he did tolerate the Keflex for 2 days prior to developing anaphylaxis; however, the Keflex was the only new addition to the patient's daily regimen and therefore, it was decided to add Keflex as an allergy. At this point, the anaphylaxis is presumed to be from Keflex. The patient was monitored on telemetry and had an uneventful night. This morning he reports feeling significantly improved. He has not experienced any further difficulty breathing. He still continued to have mild right facial swelling. There still is an erythematous rash present to his dorsal neck and right forearm, though he notes that this has improved. The cellulitis to his right lower extremity has also improved. PHYSICAL EXAMINATION: On exam, he has no focal neurological deficits. His heart has a regular rate and rhythm without murmurs, rubs, or gallops. His lungs are clear to auscultation without rhonchi, wheezes, or rubs. Physical assessment is otherwise benign. Mr. Moore is stable for discharge today. Vital signs are as follows: Temperature 98.5, heart rate 82, respiratory rate 18, oxygen saturation 92% on room air, blood pressure 115/85. DISCHARGE MEDICATIONS: New Medications: 1. Doxycycline 100 mg p.o. b.i.d x3 days. 2. EpiPen 0.3 mg injection once p.r.n. allergy symptoms or p.r.n. anaphylaxis. 3. Famotidine 20 mg p.o. b.i.d. 4. Medrol Dosepak 4 mg, see pack instructions. 5. Benadryl 25 mg q.4 hours p.r.n. allergy symptoms. Discontinued Medications: Keflex. DISCHARGE PLAN: Mr. Moore will be discharged to home. Activity will be as tolerated. Diet will be regular as tolerated. Medications are as noted above. The patient has been prescribed an EpiPen with 3 additional refills. He should also complete a Medrol Dosepak and I have sent him a prescription for famotidine as well. He will need to complete another 3 days of doxycycline to complete a total of 7 days of antibiotic therapy for his right lower extremity cellulitis. Again at this point, the anaphylaxis is presumed to be due to Keflex and so Keflex has been added as an allergy. I have advised the patient that he should not take any cephalosporins at this time and also should not take any penicillin drugs. I have recommended that he follow up with an recruiter specialist to have skin testing to get a record of accurate allergies. He will need to follow up with his primary care provider in the next 4 to 7 days. I will note that here at the hospital stay, the patient was noted to have a slightly elevated serum glucose, though I think this may just be secondary to corticosteroids, although he may benefit from having a hemoglobin A1c checked with his PCP. He has been advised to return to the emergency room or nearest hospital for any worsening symptoms, shortness of breath, lightheadedness, dizziness, chest discomfort, high fever, chills, night sweats, loss of consciousness or any other worrisome signs of symptoms. DISCHARGE CONDITION: Stable. DISCHARGE DISPOSITION: Home. This is a summarized report of a complex medical history and hospital stay. For further details, please see the entire medical record. TIME SPENT: Approximately 40 minutes was spent on this discharge. ANUSHKA DEUTSCH NP [id number]/[facility] #: [id number] CLAUDE
== END 2019-03-16 12:40 | disposition home or self-care (01) ==
LOC: ED 09:45 → MEDTELE 15:39
PROVIDERS: ADMIT Internal Medicine; ATTEND Internal Medicine
DX: T78.2XXA Anaphylactic shock, unspecified, initial encounter (principal); T78.3XXA Angioneurotic edema, initial encounter; L03.115 Cellulitis of right lower limb; J45.909 Unspecified asthma, uncomplicated; K21.9 Gastro-esophageal reflux disease without esophagitis; Z79.899 Other long term (current) drug therapy; G47.33 Obstructive sleep apnea (adult) (pediatric); M19.90 Unspecified osteoarthritis, unspecified site; M75.51 Bursitis of right shoulder
CPT/HCPCS: 36415; 80053; 85025; 85027; 93005; 94660; 96372; 96374; 96376; 99283; A9270-GY; G0378; J1200; J7512

== ENCOUNTER 2019-08-16 13:54 | Emergency (ER) | payer BC ==
[2019-08-16 14:04] VITALS: BP 120/69
--- NOTE | 2019-08-16 14:06 | UC ---
Skin Complaint HPI - HPI Summary HPI Summary: 43 yo male presents with ?cellulitis. He tells me that he has a long history of athlete's foot to both of his feet. Sometimes the cracks in his skin cause redness, pain, and swelling to his toes causing cellulitis and he requires antibiotic therapy. He tells me that most recently this happened in March 2019 and he was prescribed keflex and had an allergic reaction to this. Over the last 3-4 days has had left third toe redness, swelling, and pain. Today noticed some redness and swelling to right anterior ankle. Denies recent injury, diabetes, fever, or chills. - History of Current Complaint Chief Complaint: UCSkin Time Seen by Provider: 08/16/19 14:05 Stated Complaint: SKIN COMPLAINT Hx Obtained From: Patient Onset/Duration: Gradual Onset Onset Severity: Mild Current Severity: Moderate Pain Intensity: 5 Pain Scale Used: 0-10 Numeric - Allergy/Home Medications Allergies/Adverse Reactions: Allergies Allergy/AdvReac Type Severity Reaction Status Date / Time cephalexin [From Keflex] Allergy Rash And Verified 08/16/19 14:03 Itching PMH/Surg Hx/FS Hx/Imm Hx - Additional Past Medical History Additional PMH: None - Surgical History Surgical History: Yes Surgery Procedure, Year, and Place: allografts of right and left biceps 2006 [facility]. tonsillectomy as a child. tendon repair left index finger 1998 [facility] [place]. right shoulder repair. knee scope - Family History Known Family History: Positive: Hypertension - Social History Lives: With Family Alcohol Use: Weekly Alcohol Amount: 1-2 week Substance Use Type: None Smoking Status (MU): Never Smoked Tobacco Have You Smoked in the Last Year: No Review of Systems All Other Systems Reviewed And Are Negative: No Constitutional: Positive: Negative Skin: Positive: Other - toe and leg redness Respiratory: Positive: Negative Cardiovascular: Positive: Negative Neurovascular: Positive: Negative Neurological: Positive: Negative Psychological: Positive: Negative Physical Exam - Summary Physical Exam Summary: GENERAL: NAD. WDWN. No pain distress. SKIN: LEFT FOOT: 3rd toe with moderate edema and erythema. Mild warmth and TTP. Interdigit raw appearing skin with mild superficial skin tears. RIGHT interdigit raw appearing skin with mild superficial skin tears similar to left foot. Anterior right ankle with mild erythema and edema. NECK: Supple. Nontender. No lymphadenopathy. CHEST: No accessory muscle use. Breathing comfortably and in no distress. CV: Pulses intact. Cap refill <2seconds MSK: Toes FROM and b/l ankles FROM. NEURO: Alert. PSYCH: Age appropriate behavior. Triage Information Reviewed: Yes Vital Signs: Initial Vital Signs Temp 98.6 F 08/16/19 13:58 Pulse 69 08/16/19 13:58 Resp 18 08/16/19 13:58 BP 120/69 08/16/19 13:58 Pulse Ox 97 08/16/19 13:58 Vital Signs Reviewed: Yes Course/Dx - Course Course Of Treatment: Cellulitis secondary to moderate to severe athlete's foot. - Diagnoses Provider Diagnosis: Cellulitis, toe, Cellulitis of ankle Discharge ED - Sign-Out/Discharge Documenting (check all that apply): Patient Departure All imaging exams completed and their final reports reviewed: No Studies - Discharge Plan Condition: Stable Disposition: HOME Prescriptions: Clindamycin HCl 300 mg PO TID #21 capsule Patient Education Materials: Athlete's Foot (ED), Cellulitis (ED) Referrals: Tai Torrez NP [Primary Care Provider] - Additional Instructions: If you develop a fever, shortness of breath, chest pain, new or worsening symptoms - please call your PCP or go to the ED immediately. - Billing Disposition and Condition Condition: STABLE Disposition: Home
== END 2019-08-16 14:25 | disposition home or self-care (01) ==
LOC: UCEAST 13:54
DX: L03.032 Cellulitis of left toe (principal); L03.031 Cellulitis of right toe; L03.116 Cellulitis of left lower limb; L03.115 Cellulitis of right lower limb; Z88.1 Allergy status to other antibiotic agents
CPT/HCPCS: 99212; G0463

== ENCOUNTER 2019-10-29 13:03 | Emergency (ER) | payer BC ==
--- NOTE | 2019-10-29 13:38 | UC ---
Lower Extremity/Ankle HPI - HPI Summary HPI Summary: 43 yo male injured his right ankle on week ago still with pain and swelling over MM walks with a limp - History of Current Complaint Chief Complaint: UCLowerExtremity Stated Complaint: ANKLE INJURY (RIGHT) Time Seen by Provider: 10/29/19 13:15 Hx Obtained From: Patient Onset/Duration: Sudden Onset, Lasting Days Severity Initially: Moderate Severity Currently: Mild Pain Intensity: 4 Pain Scale Used: 0-10 Numeric Aggravating Factor(s): Standing, Ambulation Alleviating Factor(s): Rest, Elevation Able to Bear Weight: Yes Feet (Multiple View): 1 - tender and swollen/ecchymosis - Allergies/Home Medications Allergies/Adverse Reactions: Allergies Allergy/AdvReac Type Severity Reaction Status Date / Time cephalexin [From Keflex] Allergy Rash And Verified 10/29/19 13:13 Itching Home Medications: Home Medications NK [No Home Medications Reported] 10/29/19 [History Confirmed 10/29/19] PMH/Surg Hx/FS Hx/Imm Hx Previously Healthy: Yes - Surgical History Surgical History: Yes Surgery Procedure, Year, and Place: allografts of right and left biceps 2006 [facility]. tonsillectomy as a child. tendon repair left index finger 1998 [facility] [place]. right shoulder repair. knee scope - Family History Known Family History: Positive: Hypertension - Social History Alcohol Use: Weekly Alcohol Amount: 1-2 week Substance Use Type: None Smoking Status (MU): Former Smoker Have You Smoked in the Last Year: No Review of Systems All Other Systems Reviewed And Are Negative: Yes Constitutional: Positive: Negative Skin: Positive: Bruising Eyes: Positive: Negative ENT: Positive: Negative Respiratory: Positive: Negative Gastrointestinal: Positive: Negative Genitourinary: Positive: Negative Motor: Positive: Negative Neurovascular: Positive: Negative Musculoskeletal: Positive: Arthralgia - MM right ankle Neurological/Mental Status: Positive: Negative Psychological: Positive: Negative Physical Exam Triage Information Reviewed: Yes Appearance: Well-Appearing, No Pain Distress, Well-Nourished Vital Signs: Initial Vital Signs Temp 97.8 F 02/21/20 13:08 Pulse 77 10/29/19 13:08 Resp 16 10/29/19 13:08 BP 124/63 10/29/19 13:08 Pulse Ox 100 10/29/19 13:08 Vital Signs Reviewed: Yes Eyes: Positive: Conjunctiva Clear ENT: Positive: Hearing grossly normal. Negative: Pharyngeal erythema, Nasal congestion, Nasal drainage, Tonsillar exudate, Trismus, Muffled voice, Hoarse voice Neck: Positive: Supple, Nontender Respiratory: Positive: Lungs clear, Normal breath sounds, No respiratory distress, No accessory muscle use Cardiovascular: Positive: RRR, No Murmur Musculoskeletal: Positive: Other: - see image Neurological: Positive: Alert Psychological Exam: Normal Skin Exam: Other - intact Diagnostics - Radiology No standard instances Radiology Interpretation Completed By: Radiologist Summary of Radiographic Findings: STS- no fx Lower Extremity Course/Dx - Differential Dx/Diagnosis Provider Diagnosis: Contusion of right ankle Discharge ED - Sign-Out/Discharge Documenting (check all that apply): Patient Departure All imaging exams completed and their final reports reviewed: Yes - Discharge Plan Condition: Stable Disposition: HOME Patient Education Materials: Contusion in Adults (ED) Referrals: Chery Salgado MD [Medical Doctor] - 7 Days (if not better) Additional Instructions: ice twice daily - Billing Disposition and Condition Condition: STABLE Disposition: Home
[2019-10-29 14:26] VITALS: BP 124/63
== END 2019-10-29 14:05 | disposition home or self-care (01) ==
LOC: UCEAST 13:03
DX: S90.01XA Contusion of right ankle, initial encounter (principal); Z88.1 Allergy status to other antibiotic agents; Z87.891 Personal history of nicotine dependence; X58.XXXA Exposure to other specified factors, initial encounter; Y92.9 Unspecified place or not applicable
CPT/HCPCS: 99211; G0463